=== PATIENT | female | born 1995 | race Caucasian/White ===

== ENCOUNTER 2017-09-28 23:24 | Outpatient (CLI) | payer MEDICAID ==
[2017-09-29 01:01] LABS: ADD MAN DIFF? NO
[2017-09-29 01:04] LABS: BASOPHIL # 0.1 10^3/ul (0.0-0.1); BASOPHILS % 0.4 % (0.0-2.0); EOSINOPHILS # 0.3 10^3/ul (0.0-0.5); EOSINOPHILS % 2.1 % (0.0-7.0); HEMATOCRIT 29.7 % (37.0-47.0); HEMOGLOBIN 9.5 g/dl (12.0-16.0); LYMPHOCYTES # 4.5 10^3/ul (0.8-2.9); LYMPHOCYTES % 37.1 % (18.0-55.0); MEAN CORPUSCULAR HEMOGLOBIN 25.2 pg (29.0-33.0); MEAN CORPUSCULAR VOLUME 78.8 fl (72.0-104.0); MEAN PLATELET VOLUME 10.2 fl (7.4-10.4); MONOCYTES % 8.4 % (0.0-13.0); NEUTROPHIL # 6.3 10^3/ul (1.6-7.5); NEUTROPHILS % 51.3 % (30.0-74.0); PLATELET COUNT 270 10^3/UL (140-415); RED BLOOD COUNT 3.77 10^6/ul (4.20-5.40); RED CELL DISTRIBUTION WIDTH 19.5 % (11.5-14.5)
[2017-09-29 01:04] LABS: WHITE BLOOD COUNT 12.3 10^3/ul (4.8-10.8)
[2017-09-29 01:15] LABS: ADD UMIC NO; UR ASCORBIC ACID 20 mg/dL (NEGATIVE); UR BILIRUBIN (Dip) NEGATIVE (NEGATIVE); UR BLOOD (Dip) NEGATIVE (NEGATIVE); UR CLARITY CLEAR (CLEAR); UR COLOR YELLOW (YELLOW); UR GLUCOSE (Dip) NEGATIVE (NEGATIVE); UR KETONES (Dip) NEGATIVE (NEGATIVE); UR LEUKOCYTE ESTERASE (Dip) NEGATIVE Leu/ul (NEGATIVE); UR NITRITE (Dip) NEGATIVE (NEGATIVE); UR SPECIFIC GRAVITY (Dip) 1.025 (1.003-1.030); UR TOTAL PROTEIN (Dip) NEGATIVE (NEGATIVE); UR UROBILINOGEN (Dip) NEGATIVE (NEGATIVE)
[2017-09-29] MEDS: NIFEdipine 10 MG CAP PO (01:55)
== END 2017-09-29 06:25 | disposition home or self-care (01) ==
LOC: OBT 23:24 → L-D 23:25 → OBT 09-29 06:25
DX: O26.892 Other specified pregnancy related conditions, second trimester (principal); R10.2 Pelvic and perineal pain; Z3A.21 21 weeks gestation of pregnancy
CPT/HCPCS: 76805; 81003; 85025

== ENCOUNTER 2017-11-07 15:56 | Outpatient (CLI) | payer SELFPAY, MEDICAID ==
[2017-11-07] MEDS ORDERED: ONDANSETRON 4 MG INJ IV (17:00)
[2017-11-07] MEDS: DEXTROSE 5%-LR 1,000 ML IV (17:24)
[2017-11-07 17:30] LABS: ADD UMIC NO; UR ASCORBIC ACID NEGATIVE (NEGATIVE); UR BILIRUBIN (Dip) NEGATIVE (NEGATIVE); UR BLOOD (Dip) NEGATIVE (NEGATIVE); UR CLARITY CLEAR (CLEAR); UR COLOR YELLOW (YELLOW); UR GLUCOSE (Dip) NEGATIVE (NEGATIVE); UR KETONES (Dip) NEGATIVE (NEGATIVE); UR LEUKOCYTE ESTERASE (Dip) NEGATIVE Leu/ul (NEGATIVE); UR NITRITE (Dip) NEGATIVE (NEGATIVE); UR SPECIFIC GRAVITY (Dip) 1.018 (1.003-1.030); UR TOTAL PROTEIN (Dip) NEGATIVE (NEGATIVE); UR UROBILINOGEN (Dip) NEGATIVE (NEGATIVE)
[2017-11-07 17:39] LABS: ADD MAN DIFF? NO
[2017-11-07 17:42] LABS: BASOPHILS % 0.4 % (0.0-2.0); EOSINOPHILS # 0.3 10^3/ul (0.0-0.5); EOSINOPHILS % 2.4 % (0.0-7.0); HEMATOCRIT 32.2 % (37.0-47.0); HEMOGLOBIN 10.8 g/dl (12.0-16.0); LYMPHOCYTES # 2.4 10^3/ul (0.8-2.9); LYMPHOCYTES % 22.3 % (18.0-55.0); MEAN CORPUSCULAR HEMOGLOBIN 27.7 pg (29.0-33.0); MEAN CORPUSCULAR HGB CONC 33.5 g/dl (32.0-37.0); MEAN CORPUSCULAR VOLUME 82.6 fl (72.0-104.0); MEAN PLATELET VOLUME 10.3 fl (7.4-10.4); MONOCYTES % 9.4 % (0.0-13.0); NEUTROPHILS % 64.5 % (30.0-74.0); PLATELET COUNT 241 10^3/UL (140-415)
[2017-11-07 17:42] LABS: WHITE BLOOD COUNT 10.8 10^3/ul (4.8-10.8)
[2017-11-07 17:45] LABS: OPIATES Positive (NEGATIVE)
[2017-11-07 17:53] LABS: AMPHETAMINE/METHAMPHETAMINE Negative (NEGATIVE); BARBITURATES Negative (NEGATIVE); BENZODIAZEPINES Negative (NEGATIVE); CANNABINOIDS Negative (NEGATIVE); COCAINE Negative (NEGATIVE)
[2017-11-07 18:06] LABS: ALANINE AMINOTRANSFERASE 34 IU/L (13-69); ALBUMIN 3.5 g/dl (3.3-4.9); ALKALINE PHOSPHATASE 77 IU/L (42-121); ANION GAP 13 (8-16); ASPARTATE AMINO TRANSFERASE 24 IU/L (15-46); BLOOD UREA NITROGEN 8 mg/dl (7-20); CALCIUM 8.7 mg/dl (8.4-10.2); CARBON DIOXIDE 22 mmol/L (21-31); CHLORIDE 107 mmol/L (97-110); CREATININE 0.49 mg/dl (0.44-1.00); GLUCOSE 72 mg/dl (70-220); POTASSIUM 3.7 mmol/L (3.5-5.1); SODIUM 138 mmol/L (135-144)
== END 2017-11-07 19:30 | disposition home or self-care (01) ==
LOC: OBT 15:56 → L-D 15:59 → OBT 19:30
DX: O26.892 Other specified pregnancy related conditions, second trimester (principal); Z3A.27 27 weeks gestation of pregnancy; K59.00 Constipation, unspecified; R10.31 Right lower quadrant pain; R11.2 Nausea with vomiting, unspecified; R19.7 Diarrhea, unspecified
CPT/HCPCS: 36415; 76705; 76815; 76817; 76818; 80053; 80307; 81003; 82731; 85025; 96360; 96361

== ENCOUNTER 2017-11-07 23:40 | Emergency (ER) | payer SELFPAY | END 2017-11-08 01:21 | disposition home or self-care (01) | LOC: FTE 23:40 | DX: O26.892 Other specified pregnancy related conditions, second trimester (principal); R10.9 Unspecified abdominal pain; Z3A.26 26 weeks gestation of pregnancy | CPT/HCPCS: 99282 ==

== ENCOUNTER 2018-01-09 11:40 | Inpatient (IN) | payer MEDICAID ==
[2018-01-09 12:30] LABS: ADD MAN DIFF? NO
[2018-01-09 12:32] LABS: BASOPHILS % 0.5 % (0.0-2.0); EOSINOPHILS # 0.2 10^3/ul (0.0-0.5); EOSINOPHILS % 1.8 % (0.0-7.0); HEMATOCRIT 31.6 % (37.0-47.0); HEMOGLOBIN 10.5 g/dl (12.0-16.0); LYMPHOCYTES # 2.5 10^3/ul (0.8-2.9); LYMPHOCYTES % 27.8 % (18.0-55.0); MEAN CORPUSCULAR HEMOGLOBIN 27.1 pg (29.0-33.0); MEAN CORPUSCULAR HGB CONC 33.2 g/dl (32.0-37.0); MEAN CORPUSCULAR VOLUME 81.7 fl (72.0-104.0); MEAN PLATELET VOLUME 11.2 fl (7.4-10.4); MONOCYTE # 0.6 10^3/ul (0.3-0.9); MONOCYTES % 6.4 % (0.0-13.0); NEUTROPHIL # 5.6 10^3/ul (1.6-7.5); NEUTROPHILS % 62.7 % (30.0-74.0); NUCLEATED RED BLOOD CELLS% 0.2 /100WBC (0.0-0.0); PLATELET COUNT 259 10^3/UL (140-415); RED BLOOD COUNT 3.87 10^6/ul (4.20-5.40); RED CELL DISTRIBUTION WIDTH 16.3 % (11.5-14.5)
[2018-01-09 12:32] LABS: WHITE BLOOD COUNT 8.9 10^3/ul (4.8-10.8)
[2018-01-09 12:51] LABS: ALANINE AMINOTRANSFERASE 21 IU/L (13-69); ALKALINE PHOSPHATASE 151 IU/L (42-121); ANION GAP 11 (8-16); ASPARTATE AMINO TRANSFERASE 19 IU/L (15-46); BILIRUBIN,INDIRECT 0.4 mg/dl (0-1.1); BILIRUBIN,TOTAL 0.4 mg/dl (0.2-1.3); BLOOD UREA NITROGEN 12 mg/dl (7-20); CALCIUM 8.4 mg/dl (8.4-10.2); CARBON DIOXIDE 22 mmol/L (21-31); CHLORIDE 111 mmol/L (97-110); CREATININE 0.59 mg/dl (0.44-1.00); GLUCOSE 111 mg/dl (70-220); POTASSIUM 3.9 mmol/L (3.5-5.1); SODIUM 140 mmol/L (135-144); TOTAL PROTEIN 6.3 g/dl (6.1-8.1); URIC ACID 5.8 mg/dl (3.1-7.9)
[2018-01-09 12:53] LABS: ADD UMIC YES; UR ASCORBIC ACID NEGATIVE (NEGATIVE); UR BILIRUBIN (Dip) NEGATIVE (NEGATIVE); UR BLOOD (Dip) NEGATIVE (NEGATIVE); UR CLARITY SLIGHTLY CLOUDY (CLEAR); UR COLOR YELLOW (YELLOW); UR GLUCOSE (Dip) NEGATIVE (NEGATIVE); UR KETONES (Dip) NEGATIVE (NEGATIVE); UR LEUKOCYTE ESTERASE (Dip) NEGATIVE Leu/ul (NEGATIVE); UR MUCUS MANY /HPF (NONE SEEN); UR NITRITE (Dip) NEGATIVE (NEGATIVE); UR RBC 1 /HPF (0-5); UR SPECIFIC GRAVITY (Dip) 1.029 (1.003-1.030); UR SQUAMOUS EPITHELIAL CELL FEW /HPF (FEW); UR TOTAL PROTEIN (Dip) 2+ mg/dl (NEGATIVE); UR UROBILINOGEN (Dip) NEGATIVE (NEGATIVE); UR WBC 3 /HPF (0-5)
[2018-01-09 12:55] LABS: INR 0.95; PROTIME 12.8 Sec (11.9-14.9)
[2018-01-09 12:56] LABS: PARTIAL THROMBOPLASTIN TIME 27.5 Sec (25.0-35.0)
[2018-01-09 13:15] LABS: AMPHETAMINE/METHAMPHETAMINE Negative (NEGATIVE); BARBITURATES Negative (NEGATIVE); BENZODIAZEPINES Negative (NEGATIVE); CANNABINOIDS Negative (NEGATIVE); COCAINE Negative (NEGATIVE); OPIATES Negative (NEGATIVE)
[2018-01-09] MEDS: ACETAMINOPHEN 325 MG TAB PO (16:11)
[2018-01-09] MEDS: NACL 0.9% 3 ML SYG IV (18:56)
[2018-01-09] MEDS: BETAMET NA PHOS/AC(6 MG/ML) 5ML INJ IM (21:00)
[2018-01-10] MEDS ORDERED: MAGNESIUM SULFATE 4 GM/100 ML 100 ML (00:30)
[2018-01-10] MEDS: LACTATED RINGER'S 1,000 ML IV ×2 (00:48→21:00)
[2018-01-10] MEDS: MAGNESIUM SULFATE 4 GM/100 ML 100 ML IVPB (00:49)
[2018-01-10] MEDS: MAGNESIUM SULFATE 20 GM/500 ML 500 ML IV (01:17)
[2018-01-10 07:20] LABS: ADD MAN DIFF? NO
[2018-01-10 07:23] LABS: BASOPHILS % 0.3 % (0.0-2.0); HEMATOCRIT 35.7 % (37.0-47.0); HEMOGLOBIN 11.9 g/dl (12.0-16.0); LYMPHOCYTES # 1.6 10^3/ul (0.8-2.9); LYMPHOCYTES % 16.8 % (18.0-55.0); MEAN CORPUSCULAR HGB CONC 33.3 g/dl (32.0-37.0); MEAN PLATELET VOLUME 11.5 fl (7.4-10.4); MONOCYTE # 0.1 10^3/ul (0.3-0.9); MONOCYTES % 1.2 % (0.0-13.0); NEUTROPHIL # 7.6 10^3/ul (1.6-7.5); NEUTROPHILS % 80.1 % (30.0-74.0); NUCLEATED RED BLOOD CELLS% 0.2 /100WBC (0.0-0.0); PLATELET COUNT 288 10^3/UL (140-415); RED BLOOD COUNT 4.41 10^6/ul (4.20-5.40); RED CELL DISTRIBUTION WIDTH 16.3 % (11.5-14.5)
[2018-01-10 07:23] LABS: WHITE BLOOD COUNT 9.5 10^3/ul (4.8-10.8)
[2018-01-10 07:41] LABS: URIC ACID 5.8 mg/dl (3.1-7.9)
[2018-01-10 07:41] LABS: ALANINE AMINOTRANSFERASE 19 IU/L (13-69); ALBUMIN 3.3 g/dl (3.3-4.9); ALBUMIN/GLOBULIN RATIO 0.91; ALKALINE PHOSPHATASE 190 IU/L (42-121); ANION GAP 13 (8-16); ASPARTATE AMINO TRANSFERASE 21 IU/L (15-46); BILIRUBIN,INDIRECT 0.1 mg/dl (0-1.1); BILIRUBIN,TOTAL 0.1 mg/dl (0.2-1.3); BLOOD UREA NITROGEN 13 mg/dl (7-20); CALCIUM 8.1 mg/dl (8.4-10.2); CARBON DIOXIDE 20 mmol/L (21-31); CHLORIDE 108 mmol/L (97-110); CREATININE 0.56 mg/dl (0.44-1.00); GLUCOSE 106 mg/dl (70-220); POTASSIUM 4.7 mmol/L (3.5-5.1); SODIUM 136 mmol/L (135-144); TOTAL PROTEIN 6.9 g/dl (6.1-8.1)
[2018-01-10 07:45] LABS: MAGNESIUM 5.4 mg/dl (1.7-2.5)
[2018-01-10 08:01] LABS: INR 0.93; PROTIME 12.6 Sec (11.9-14.9)
[2018-01-10 08:02] LABS: PARTIAL THROMBOPLASTIN TIME 27.2 Sec (25.0-35.0)
[2018-01-10] MEDS: FERROUS SULFATE (EC) 325 MG TAB PO (09:47)
[2018-01-10] MEDS: PRENATAL VITAMIN PO (09:49)
[2018-01-10 18:20] LABS: COLLECTION PERIOD 24 hrs
[2018-01-10 19:34] LABS: COLLECTION PERIOD 24 hrs; SCRET 0.56 mg/dl (0.44-1.00)
[2018-01-10 19:35] LABS: CREATININE CLEARANCE 88.1 mls/min (84.0-162.0); CREATININE,URINE RANDOM 54.68 mg/dl (20-320); VOLUME 1300 ml/24hrs
[2018-01-10 19:50] LABS: VOLUME 1300 mls
[2018-01-10 20:07] LABS: RAPID PLASMA REAGIN NONREACTIVE (NR)
[2018-01-11] MEDS: LACTATED RINGER'S 1,000 ML IV ×2 (08:41→15:54)
[2018-01-11] MEDS: PRENATAL VITAMIN PO (09:00)
[2018-01-11] MEDS: FERROUS SULFATE (EC) 325 MG TAB PO (13:21)
[2018-01-12] MEDS: LACTATED RINGER'S 1,000 ML IV ×3 (00:06→16:21)
[2018-01-12] MEDS: LABETALOL 100 MG TAB PO ×3 (01:31→21:02)
[2018-01-12] MEDS: FERROUS SULFATE (EC) 325 MG TAB PO (08:37)
[2018-01-12] MEDS: PRENATAL VITAMIN PO (08:38)
[2018-01-12] MEDS: ACETAMINOPHEN 325 MG TAB PO ×2 (12:16→19:09)
[2018-01-13] MEDS: LACTATED RINGER'S 1,000 ML IV ×3 (00:52→19:57)
[2018-01-13] MEDS: LABETALOL 100 MG TAB PO ×2 (04:23→09:00)
[2018-01-13] MEDS ORDERED: LIDOCAINE 1% (MPF) 30 ML INJ INJ (06:30)
[2018-01-13] MEDS ORDERED: OXYTOCIN 30 UNITS/LR 500 ML IV ×2 (06:30)
[2018-01-13] MEDS ORDERED: METHYLERGONOVINE 0.2 MG INJ IM (06:30)
[2018-01-13] MEDS ORDERED: MISOPROSTOL 200 MCG TAB PR ×2 (06:30→16:30)
[2018-01-13] MEDS ORDERED: BUTORPHANOL 2 MG INJ IV (06:30)
[2018-01-13] MEDS ORDERED: CARBOPROST 250 MCG INJ IM (06:30)
[2018-01-13] MEDS ORDERED: MAGNESIUM SULFATE 4 GM/100 ML 100 ML (06:35)
[2018-01-13] MEDS: MAGNESIUM SULFATE 4 GM/100 ML 100 ML IV (06:49)
[2018-01-13] MEDS: MAGNESIUM SULFATE 20 GM/500 ML 500 ML IV ×3 (07:11→19:59)
[2018-01-13] MEDS ORDERED: LABETALOL HCL 20MG INJ (07:33)
[2018-01-13] MEDS: AMPICILLIN 2 GM/NS (PMX) 100 ML IV (07:40)
[2018-01-13] MEDS: MISOPROSTOL 25 MCG CAPSULE PO ×3 (08:00→19:58)
[2018-01-13] MEDS: LABETALOL HCL 20MG INJ IV (08:01)
[2018-01-13] MEDS ORDERED: LABETALOL HCL 20MG INJ IV (08:50)
[2018-01-13] MEDS: FERROUS SULFATE (EC) 325 MG TAB PO (09:00)
[2018-01-13] MEDS: PRENATAL VITAMIN PO (09:00)
[2018-01-13] MEDS: ACETAMINOPHEN 325 MG TAB PO (09:58)
[2018-01-13] MEDS: AMPICILLIN 1 GM/NS (PMX) 50 ML IV ×3 (11:47→19:57)
[2018-01-13] MEDS ORDERED: MISOPROSTOL 25 MCG CAPSULE PO (12:00)
[2018-01-13 12:42] LABS: ADD MAN DIFF? NO
[2018-01-13 12:44] LABS: BASOPHIL # 0.1 10^3/ul (0.0-0.1); BASOPHILS % 0.7 % (0.0-2.0); EOSINOPHILS # 0.1 10^3/ul (0.0-0.5); EOSINOPHILS % 0.9 % (0.0-7.0); HEMOGLOBIN 11.1 g/dl (12.0-16.0); LYMPHOCYTES # 3.2 10^3/ul (0.8-2.9); MEAN CORPUSCULAR HEMOGLOBIN 27.1 pg (29.0-33.0); MEAN CORPUSCULAR HGB CONC 32.6 g/dl (32.0-37.0); MEAN CORPUSCULAR VOLUME 82.9 fl (72.0-104.0); MEAN PLATELET VOLUME 10.8 fl (7.4-10.4); MONOCYTES % 7.4 % (0.0-13.0); NEUTROPHIL # 9.1 10^3/ul (1.6-7.5); NEUTROPHILS % 65.6 % (30.0-74.0); NUCLEATED RED BLOOD CELLS # 0.1 10^3/ul (0.0-0.0); NUCLEATED RED BLOOD CELLS% 0.7 /100WBC (0.0-0.0); PLATELET COUNT 260 10^3/UL (140-415); RED CELL DISTRIBUTION WIDTH 16.9 % (11.5-14.5)
[2018-01-13 12:44] LABS: WHITE BLOOD COUNT 13.8 10^3/ul (4.8-10.8)
[2018-01-13 13:13] LABS: MAGNESIUM 5.1 mg/dl (1.7-2.5)
[2018-01-13 13:19] LABS: INR 0.87; PARTIAL THROMBOPLASTIN TIME 24.1 Sec (25.0-35.0); PROTIME 11.9 Sec (11.9-14.9); PT RATIO 0.9
[2018-01-13 15:03] LABS: RAPID PLASMA REAGIN NONREACTIVE (NR)
[2018-01-13] MEDS ORDERED: DEXAMETHASONE 4 MG/ML 1 ML INJ (16:00)
[2018-01-13] MEDS ORDERED: KETOROLAC 30 MG INJ (16:00)
[2018-01-13] MEDS ORDERED: morphine SULFATE/PF (10 MG/10 ML) INJ (16:00)
[2018-01-13] MEDS ORDERED: METOCLOPRAMIDE 10 MG INJ (16:00)
[2018-01-13] MEDS ORDERED: PHENYLephrine (100 MCG/ML) 5ML SYG (16:00)
[2018-01-13] MEDS ORDERED: BUPIVACAINE 0.75%/DEXT (SPINAL) 2 ML INJ (16:00)
[2018-01-13] MEDS ORDERED: OXYTOCIN 10 UNIT INJ ×2 (16:00→16:52)
[2018-01-13] MEDS: CITRIC ACID/SODIUM CITRATE 15 ML CUP PO (16:05)
[2018-01-13] MEDS: ONDANSETRON 4 MG INJ IV (16:05)
[2018-01-13] MEDS ORDERED: NALBUPHINE HCL (10 MG/1 ML) INJ IV (16:30)
[2018-01-13] MEDS ORDERED: ONDANSETRON 4 MG INJ IV (16:30)
[2018-01-13] MEDS ORDERED: NA PHOSPHATE/BIPHOS 133 ML ENEMA PR (16:30)
[2018-01-13] MEDS ORDERED: HYDROCODONE/APAP (5/325) TAB PO (16:30)
[2018-01-13] MEDS ORDERED: morphine 2 MG INJ IV ×2 (16:30)
[2018-01-13] MEDS ORDERED: ACETAMINOPHEN 500 MG TAB PO (16:30)
[2018-01-13] MEDS ORDERED: HYDROmorphONE 0.5 MG/0.5 ML SYG IV ×2 (16:30)
[2018-01-13] MEDS ORDERED: LANOLIN 7 GM TUBE TOP (16:30)
[2018-01-13] MEDS ORDERED: NALOXONE (0.4 MG/ML) INJ IV (16:30)
[2018-01-13] MEDS ORDERED: CA GLUCONATE (GM) 10% 10ML INJ IV (17:00)
[2018-01-13] MEDS ORDERED: NIFEdipine (XL) 60 MG TAB PO (17:00)
[2018-01-13] MEDS ORDERED: LABETALOL 200 MG TAB PO (17:00)
[2018-01-13] MEDS: CEFAZOLIN 2 GM/50 ML (PMX) 50 ML IVPB (17:45)
[2018-01-13] MEDS: OXYTOCIN 30 UNITS/LR 500 ML IV (18:35)
[2018-01-13] MEDS: DIPHENHYDRAMINE 50 MG INJ IV (19:02)
[2018-01-13 19:06] LABS: MAGNESIUM 5.4 mg/dl (1.7-2.5)
[2018-01-13 19:46] LABS: AMPHETAMINE/METHAMPHETAMINE Negative (NEGATIVE); BARBITURATES Negative (NEGATIVE); BENZODIAZEPINES Negative (NEGATIVE); CANNABINOIDS Negative (NEGATIVE); COCAINE Negative (NEGATIVE); OPIATES Negative (NEGATIVE)
[2018-01-13] MEDS: NIFEdipine (XL) 60 MG TAB PO (20:46)
[2018-01-13] MEDS: SENNA/DOCUSATE NA (8.6MG/50MG) TAB PO (21:00)
[2018-01-14] MEDS: LACTATED RINGER'S 1,000 ML IV ×2 (00:40→13:28)
[2018-01-14 01:27] LABS: MAGNESIUM 6.6 mg/dl (1.7-2.5)
[2018-01-14] MEDS: DIPHENHYDRAMINE 50 MG INJ IV (02:51)
[2018-01-14] MEDS: MAGNESIUM SULFATE 20 GM/500 ML 500 ML IV ×2 (02:52→13:29)
[2018-01-14] MEDS: SENNA/DOCUSATE NA (8.6MG/50MG) TAB PO ×2 (08:49→21:03)
[2018-01-14] MEDS: FERROUS SULFATE (EC) 325 MG TAB PO (08:50)
[2018-01-14] MEDS: NIFEdipine (XL) 60 MG TAB PO (09:00)
[2018-01-14 09:11] LABS: WHITE BLOOD COUNT 15.7 10^3/ul (4.8-10.8)
[2018-01-14 09:11] LABS: ADD MAN DIFF? NO; BASOPHILS % 0.1 % (0.0-2.0); EOSINOPHILS % 0.1 % (0.0-7.0); HEMATOCRIT 27.6 % (37.0-47.0); HEMOGLOBIN 9.2 g/dl (12.0-16.0); LYMPHOCYTES # 2.7 10^3/ul (0.8-2.9); LYMPHOCYTES % 17.3 % (18.0-55.0); MEAN CORPUSCULAR HEMOGLOBIN 27.5 pg (29.0-33.0); MEAN CORPUSCULAR HGB CONC 33.3 g/dl (32.0-37.0); MEAN CORPUSCULAR VOLUME 82.6 fl (72.0-104.0); MEAN PLATELET VOLUME 11.4 fl (7.4-10.4); MONOCYTE # 0.9 10^3/ul (0.3-0.9); MONOCYTES % 5.4 % (0.0-13.0); NEUTROPHILS % 76.5 % (30.0-74.0); NUCLEATED RED BLOOD CELLS% 0.1 /100WBC (0.0-0.0); PLATELET COUNT 245 10^3/UL (140-415); RED BLOOD COUNT 3.34 10^6/ul (4.20-5.40); RED CELL DISTRIBUTION WIDTH 16.5 % (11.5-14.5)
[2018-01-14 09:39] LABS: MAGNESIUM 6.6 mg/dl (1.7-2.5)
[2018-01-14 12:42] LABS: MAGNESIUM 6.7 mg/dl (1.7-2.5)
[2018-01-14] MEDS: KETOROLAC 30 MG INJ IV (15:45)
[2018-01-14 19:19] LABS: MAGNESIUM 5.2 mg/dl (1.7-2.5)
[2018-01-14 23:25] LABS: ADD MAN DIFF? NO
[2018-01-14 23:32] LABS: BASOPHILS % 0.2 % (0.0-2.0); EOSINOPHILS # 0.1 10^3/ul (0.0-0.5); HEMATOCRIT 26.6 % (37.0-47.0); HEMOGLOBIN 8.8 g/dl (12.0-16.0); LYMPHOCYTES # 3.3 10^3/ul (0.8-2.9); LYMPHOCYTES % 27.7 % (18.0-55.0); MEAN CORPUSCULAR HEMOGLOBIN 27.7 pg (29.0-33.0); MEAN CORPUSCULAR HGB CONC 33.1 g/dl (32.0-37.0); MEAN CORPUSCULAR VOLUME 83.6 fl (72.0-104.0); MEAN PLATELET VOLUME 10.1 fl (7.4-10.4); MONOCYTE # 0.8 10^3/ul (0.3-0.9); MONOCYTES % 6.8 % (0.0-13.0); NEUTROPHIL # 7.6 10^3/ul (1.6-7.5); NEUTROPHILS % 63.5 % (30.0-74.0); PLATELET COUNT 223 10^3/UL (140-415); RED BLOOD COUNT 3.18 10^6/ul (4.20-5.40); RED CELL DISTRIBUTION WIDTH 17.2 % (11.5-14.5)
[2018-01-15] MEDS: OXYCODONE/ACETAMINOPHEN (5/325) TAB PO ×5 (01:18→22:46)
[2018-01-15] MEDS: SENNA/DOCUSATE NA (8.6MG/50MG) TAB PO ×2 (09:07→21:04)
[2018-01-15] MEDS: FERROUS SULFATE (EC) 325 MG TAB PO (09:07)
[2018-01-16] MEDS: OXYCODONE/ACETAMINOPHEN (5/325) TAB PO (05:53)
[2018-01-16] MEDS: FERROUS SULFATE (EC) 325 MG TAB PO (09:42)
[2018-01-16] MEDS: SENNA/DOCUSATE NA (8.6MG/50MG) TAB PO (09:42)
[2018-01-16] MEDS: IBUPROFEN 600 MG TAB PO (12:13)
[2018-01-16] MEDS: DIPHTH/TET/ACEL PERTUSS (ADULT) 0.5 ML VIAL IM* (15:28)
[2018-01-16] MEDS: MEASLES,MUMPS,RUBELLA VACCINE INJ SC* (15:29)
== END 2018-01-16 18:50 | disposition home or self-care (01) | DRG 766 ==
LOC: OBT 11:40 → L-D 11:41 → OBT 18:30 → PP1 01-13 21:27 → L-D 18:30
PROC: 10D00Z1 Extraction of Products of Conception, Low, Open Approach (ICD-10-PCS; principal; 2018-01-13 16:15)
PROC: 3E033VJ Introduction of Other Hormone into Peripheral Vein, Percutaneous Approach (ICD-10-PCS; 2018-01-13 16:15)
DX: O60.14X0 Preterm labor third trimester with preterm delivery third trimester, not applicable or unspecified (principal); O13.4 Gestational [pregnancy-induced] hypertension without significant proteinuria, complicating childbirth; O14.14 Severe pre-eclampsia complicating childbirth; Z3A.36 36 weeks gestation of pregnancy; Z37.0 Single live birth
CPT/HCPCS: 36415; 76815; 76818; 80053; 80307; 81001; 82575; 83735; 84156; 84560; 85025; 85384; 85610; 85730; 86592; 86850; 86900; 86901; 90715; 94760; 99464